=== PATIENT | female | born 1995 | race Two or more races ===

== ENCOUNTER 2020-02-07 23:07 | Emergency (ER) | payer OTHER ==
[~2020-02-07] VITALS: Ht 165.1 cm; Wt 103.0 kg
[2020-02-07] MEDS ORDERED: BIRTHCONTROL (23:15)
--- NOTE | 2020-02-07 23:28 | NUR ---
seen by dr reeves , possible causes and treatments discussed , verbalizes understanding
[2020-02-07] MEDS ORDERED: ASPIRIN 81 MG TAB.CHEW PO ONE (23:45)
[2020-02-07] MEDS ORDERED: ASPIRIN 81 MG TAB.CHEW ONE (23:50)
[2020-02-07 23:51] LABS: BASOPHILS % (AUTO) 0.8 % (0.0-2.0); EOSINOPHILS % (AUTO) 0.4 % (0.0-7.0); HEMATOCRIT 42.2 % (31.2-41.9); LYMPHOCYTES % (AUTO) 32.8 % (20.5-51.5); MEAN CORPUSCULAR HEMOGLOBIN 25.5 uug (24.7-32.8); MEAN CORPUSCULAR HGB CONC 33 g/dL (32.3-35.6); MEAN CORPUSCULAR VOLUME 76.7 fL (75.5-95.3); MONOCYTES # (AUTO) 0.2 K/uL (2.0-10.0); MONOCYTES % (AUTO) 7.6 % (0.0-11.0); NEUTROPHILS # (AUTO) 1.7 K/uL (1.8-8.9); NEUTROPHILS % (AUTO) 58.4 % (38.5-71.5); PLATELET COUNT (AUTO) 227 K/uL (179-408); WHITE BLOOD COUNT (AUTO) 2.9 K/uL (3.8-11.8)
[2020-02-08 00:05] LABS: BILIRUBIN,DIRECT 0.3 mg/dL (0.0-0.2); BILIRUBIN,TOTAL 0.8 mg/dL (0.2-1.0); CREATININE 0.9 mg/dL (0.6-1.3); POTASSIUM 3.8 mmol/L (3.5-5.1)
[2020-02-08 00:42] LABS: *BILIRUBIN,URIN NEGATIVE (NEGATIVE); *BLOOD, URINE 1+ (NEGATIVE); *CLARITY,URINE CLEAR (CLEAR); *COLOR,URINE YELLOW (YELLOW); *KETONES,URINE NEGATIVE (NEGATIVE); *UROBILINOGEN,URINE 0.2 E.U./dl (NORMAL); LEUKOCYTE ESTERASE ,URINE NEGATIVE (NEGATIVE); NITRITE, URINE NEGATIVE (NEGATIVE); PH,URINE 5.5 (5.0-8.0); UGLUCOSE NEGATIVE (NEGATIVE)
--- NOTE | 2020-02-08 00:45 | NUR ---
us tech and radiology tect notified of the procedure
[2020-02-08 00:48] LABS: RBC,URINE 0-3 /HPF (0-3); WBC,URINE 0-3 /HPF (0-3)
[2020-02-08 00:49] LABS: BACTERIA,URINE FEW /HPF (NONE SEEN); SQUAMOUS EPITHELIAL CELL,UR FEW /HPF (NONE SEEN)
[2020-02-08] MEDS ORDERED: IV NORMAL SALINE 250 ML IV ONE (00:53)
[2020-02-08] MEDS ORDERED: IOHEXOL 350 100 ML INFUS..BTL ONE (00:53)
[2020-02-08] MEDS ORDERED: SWABABLE VALVE TRANSFER SET EA MC ONE (00:53)
--- NOTE | 2020-02-08 00:57 | NUR ---
us tech is here at the bedside
--- NOTE | 2020-02-08 01:09 | NUR ---
dr reeves made aware of the result of the us of the lower extremities
--- NOTE | 2020-02-08 01:13 | NUR ---
patient is out for ct
--- NOTE | 2020-02-08 01:28 | NUR ---
patient is back from ct scan
--- NOTE | 2020-02-08 02:00 | NUR ---
DR OCHOA INFORMED PATIETNOF US AND CTA RESULTS , VERBALIZES UNDERSTANDING
--- NOTE | 2020-02-08 03:42 | NUR ---
dr reeves went to see patient , explained all lab works , radiology results and recommendations , understand aand verbalizes understanding , discharge with no distress ,ambulatory with steady gait
[2020-02-08 03:46] VITALS: BP 153/69
== END 2020-02-08 03:48 | disposition home or self-care (01) ==
LOC: ER 23:11
DX: R07.9 Chest pain, unspecified (principal); R03.0 Elevated blood-pressure reading, without diagnosis of hypertension; R00.0 Tachycardia, unspecified; R79.1 Abnormal coagulation profile; R53.1 Weakness; R42 Dizziness and giddiness
CPT/HCPCS: 36415 ×2; 71045; 71275; 80048; 80076; 81001; 83880; 84443; 84484 ×2; 84702; 85025; 85379; 85730; 93005; 93970; 99285; Q9967; 70030-TC; A4663; J7050